=== PATIENT | female | born 2005 | race Caucasian/White ===

== ENCOUNTER 2024-09-26 10:38 | Emergency (ER) | payer OTHER ==
--- NOTE | 2024-09-26 12:19 | EDPHYS ---
Physician Documentation [facility] Name: Bradly Fortune Age: 19 yrs Sex: Female : 2005 Arrival Date: 09/26/2024 Time: 10:38 Bed IW1 Private MD: ED Physician Dave Singh HPI: 09/26 10:48 This 19 yrs old Female presents to ER via Unassigned with complaints of Allergic kb Reaction. 10:48 Pt is a 19 year old female who presents for allergic reaction. States she took kb Armodafinil for narcolepsy for the first time this morning. Afterwards she felt lethargic, shaky and tingling to throat. Denies shortness of breath. Reports abd pain. . 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 - Infectious Disease History:: Denies. - Social history:: Smoking status: Patient denies any tobacco usage or history of. Patient/guardian denies using alcohol. ROS: 10:48 Constitutional: As per HPI kb Exam: 12:18 Constitutional: This is a well developed, well nourished patient who is awake, alert, kb and in no acute distress. Head/Face: Normocephalic, atraumatic. ENT: Moist Mucous membranes Cardiovascular: Regular rate Respiratory: Respirations even and unlabored. No increased work of breathing. Talking in full sentences Skin: Warm, dry with normal turgor. Normal color. MS/ Extremity: Pulses equal, no cyanosis. Neurovascular intact. Full, normal range of motion. Neuro: Awake and alert, GCS 15, oriented to person, place, time, and situation. 12:18 Abdomen/GI: Inspection: abdomen appears normal, Bowel sounds: normal, Palpation: soft, kb in all quadrants, mild abdominal tenderness, in the left upper quadrant and left lower quadrant, Vital Signs: 10:52 BP 129 / 83; Pulse 64; Resp 17; Temp 98.2(O); Pulse Ox 100% on R/A; MAP 97 mmHg; Weight tm6 54.43 kg; Height 5 ft. 5 in. ; Pain 310; 10:52 Body Mass Index 19.97 (54.43 kg, 165.1 cm) tm6 10:52 Pain Scale: Adult tm6 MDM: 10:41 Medical Screening Exam initiated kb 12:18 Data reviewed: vital signs, nurses notes. kb 12:18 Differential diagnosis: anaphylaxis, urticaria, side effects of medication. Historians kb other than the Patient: Spouse/Significant Other: significant other. ED course: Pt elected to leave from [facility] prior to diagnostic testing and treatment. Administered Medications: 12:30 Not Given (pt left prior to med adminn): ns 0.9% 1000 ml IV at 1000 ml once; to be ss given as a bolus over 60 minutes 12:30 Not Given (pt left prior to med adminn): [id number] mg IVP once; dilute with 10 mL ss 0.9% NaCl; give over 2 minutes 12:31 Not Given (pt left prior to med adminn): [id number] mg IVP once ss Disposition Summary: 09/26/24 12:19 Discharge Ordered Notes: Location: Home kb Condition: Stable kb Diagnosis - Adverse reaction to medication kb Followup: kb - With: Emergency Department - When: As needed - Reason: Worsening of condition Followup: kb - With: Private Physician - When: 2 - 3 days - Reason: Recheck today's complaints, Continuance of care, Re-evaluation by your physician Forms: - Medication Reconciliation Form kb - Antibiotic Education kb - Prescription Opioid Use kb - Patient Portal Instructions kb - Leadership Thank You Letter kb Signatures: Dispatcher [employer] Angélica Banegas FNP-C FNP-Ckb Masterson, Tawney RN RN tm6 Honey Boyd RN ss Corrections: (The following items were deleted from the chart) 12:18 12:18 Constitutional: This is a well developed, well nourished patient who is awake, kb alert, and in no acute distress. Head/Face: Normocephalic, atraumatic. ENT: Moist Mucous membranes Cardiovascular: Regular rate Respiratory: Respirations even and unlabored. No increased work of breathing. Talking in full sentences Abdomen/GI: Soft, non-tender. No distention Skin: Warm, dry with normal turgor. Normal color. MS/ Extremity: Pulses equal, no cyanosis. Neurovascular intact. Full, normal range of motion. Neuro: Awake and alert, GCS 15, oriented to person, place, time, and situation. kb 12:31 10:54 IV Saline Lock ordered. kb ss
--- NOTE | 2024-09-26 12:19 | ER ---
Nurse's Notes [facility] Name: Bradly Fortune Age: 19 yrs Sex: Female : 2005 Arrival Date: 09/26/2024 Time: 10:38 Bed IW1 Private MD: Diagnosis: Adverse reaction to medication Presentation: 09/26 10:51 Chief complaint: Patient states: took med for narcolepsy this morning for the first tm6 time. Now feels lethargic, shaky, throat is tingly, stomach hurts. Denies SOB, rash, itching. Coronavirus screen: Client denies travel out of the [place] in the last 14 days. Ebola Screen: Patient negative for fever greater than or equal to 101.5 degrees Fahrenheit, and additional compatible Ebola Virus Disease symptoms Patient denies exposure to infectious person. Patient denies travel to an Ebola-affected area in the 21 days before illness onset. No symptoms or risks identified at this time. Onset: The symptoms/episode began/occurred this morning. Anaphylaxis evaluation, the patient reports or I have noted the following symptoms which indicate a significant risk of anaphylaxis: abdominal pain. Risk Assessment: Do you want to hurt yourself or someone else? Patient reports no desire to harm self or others. Onset of symptoms was September 26, 2024. 10:51 Method Of Arrival: Wheelchair tm6 10:51 Acuity: BHAVIK 3 tm6 Triage Assessment: 10:52 General: Appears in no apparent distress. Behavior is calm, cooperative. General: tm6 Reports feeling lethargic and shaky. Pain: Complains of pain in abdomen. EENT: No signs and/or symptoms were reported regarding the EENT system. EENT: Reports tingly throat. Neuro: Level of Consciousness is awake, alert, obeys commands, Oriented to person, place, time, situation. Cardiovascular: Patient's skin is warm and dry. Respiratory: Airway is patent Respiratory effort is even, unlabored, Respiratory pattern is regular, symmetrical. GI: Abdomen is flat, non-distended, Reports lower abdominal pain. : No signs and/or symptoms were reported regarding the genitourinary system. Derm: No signs and/or symptoms reported regarding the dermatologic system. Musculoskeletal: No signs and/or symptoms reported regarding the musculoskeletal system. 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 - Infectious Disease History:: Denies. - Social history:: Smoking status: Patient denies any tobacco usage or history of. Patient/guardian denies using alcohol. Assessment: 12:28 Reassessment: Called to triage, no answer. Unable to locate patient. Registration staff ss reports patient had left the ER lobby. 12:30 Reassessment: Pt left prior to being discharged by this nurse. ss Vital Signs: 10:52 BP 129 / 83; Pulse 64; Resp 17; Temp 98.2(O); Pulse Ox 100% on R/A; MAP 97 mmHg; Weight tm6 54.43 kg; Height 5 ft. 5 in. ; Pain 3/10; 10:52 Body Mass Index 19.97 (54.43 kg, 165.1 cm) tm6 10:52 Pain Scale: Adult tm6 ED Course: 10:41 Patient arrived in ED. mr 10:41 Angélica Pritchett F[facility]-C [facility] kb 10:41 Dave Singh MD is Attending Physician. kb 10:52 Triage completed. tm6 10:56 Arm band placed on left wrist. tm6 12:29 No provider procedures requiring assistance completed. Patient did not have IV access ss during this emergency room visit. Administered Medications: 12:30 Not Given (pt left prior to med adminn): ns 0.9% 1000 ml IV at 1000 ml once; to be ss given as a bolus over 60 minutes 12:30 Not Given (pt left prior to med adminn): [id number] mg IVP once; dilute with 10 mL ss 0.9% NaCl; give over 2 minutes 12:31 Not Given (pt left prior to med adminn): [id number] mg IVP once ss Outcome: 12:19 Discharge ordered by . kb 12:29 Discharged to home Pt left prior to receiving discharge instructions ss 12:31 Patient left the ED. ss Signatures: Angélica Pritchett FNP-C FNP-Niesha Salas, Reg Reg Honey Montes, RN RN ss Faviola Bustamante, RN RN tm6
[2024-09-26 12:39] VITALS: BP 129/83; TEMP 98.2; O2SAT 100
== END 2024-09-26 12:31 | disposition home or self-care (01) ==
LOC: ER 10:38
DX: T50.995A Adverse effect of other drugs, medicaments and biological substances, initial encounter (principal); G47.419 Narcolepsy without cataplexy
CPT/HCPCS: 99281

== ENCOUNTER 2025-01-01 23:58 | Emergency (ER) | payer OTHER ==
[2025-01-02] MEDS ORDERED: NA CHLORIDE 0.9% 500 ML ONE (00:18)
[2025-01-02] MEDS ORDERED: ACETAMINOPHEN 325 MG TABLET ONE (00:18)
[2025-01-02 00:55] LABS: Absolute Basophils 0.1 K/uL (0-0.5); Absolute Eosinophils 0.3 K/uL (0-0.5); Absolute Lymphocytes (CBC) 3.6 K/uL (0.7-4.9); Absolute Monocytes 0.8 K/uL (0.1-1.3); Absolute Neutrophil 3.5 K/uL (1.8-8.0); Basophils % 0.9 % (0-1.3); Eosinophils % 4.1 % (0-4.4); Hematocrit 36.8 % (36.0-45.0); Lymphocytes % 43.2 % (15.3-44.8); MCH 34.3 pg (27.0-35.0); MCHC 35.3 g/dL (32.0-36.0); MCV 97.2 fL (80-100); MPV 8.1 fL (7.6-11.3); Monocytes % 9.7 % (3.3-12.3); Neutrophils % 42.1 % (41.7-73.7); Nucleated Red Blood Cells % 0.1 % (0-0); Platelets 325 thou/uL (152-406); RBC Red Blood Cell Count 3.78 M/uL (3.86-4.86); Red Cell Distribution Width 12.4 % (12.1-15.2)
[2025-01-02 00:59] LABS: PT Prothrombin Time 11.6 SECONDS (10.0-13.0); PTT, Activated Partial Thromb 40.2 SECONDS (24.3-36.9); Protime INR 1.02
[2025-01-02 01:06] LABS: Specific Gravity 1.007 (1.005-1.030)
[2025-01-02 01:07] LABS: Specific Gravity 1.007 (1.005-1.030); Sqamous Epithelial <5 /HPF (None Seen); Urine Bacteria <20 /HPF (<20); Urine Bilirubin NEGATIVE (Negative); Urine Blood Negative (Negative); Urine Clarity Turbid (Clear); Urine Color Colorless (Yellow); Urine Culture Reflex Order NOT NEEDED; Urine Glucose NEGATIVE (Negative); Urine Ketones NEGATIVE (Negative); Urine Microscopic Reflex YN ORDER UMIC; Urine Nitrite NEGATIVE (Negative); Urine Protein NEGATIVE (Negative); Urine RBC <5 /HPF (None Seen); Urine Urobilinogen Normal (Normal); Urine WBC <5 /HPF (<5)
[2025-01-02 01:09] LABS: ALT/SGPT 21 U/L (13-56); Albumin/Globulin Ratio 1.2 (1.1-1.8); Alkaline Phosphatase 71 U/L (45-117); Anion Gap 11.4 mEq/L (5.0-15.0); BUN Blood Urea Nitrogen 7 mg/dL (7-18); Bicarbonate 25 mEq/L (21-32); Bilirubin Total 0.3 mg/dL (0.2-1.0); Globulin 3.4 g/dL (2.3-3.5); Glomerular Filtration Rate 109 ml/min (=/>90); Glucose Level 84 mg/dL (74-106); Magnesium 2.3 mg/dL (1.6-2.4); Potassium 3.4 mEq/L (3.5-5.1); Protein, Total 7.4 g/dL (6.4-8.2); Sodium Level 141 mEq/L (136-145); Troponin High Sensitivity 5.6 pg/mL (<58.9)
[2025-01-02 01:18] LABS: AST/SGOT < 10 U/L (15-37); Bilirubin Direct < 0.2 mg/dL (0-0.2); Bilirubin Indirect, Calculated 0.1 mg/dL (0.2-0.8)
[2025-01-02 01:22] LABS: Barbiturates NEGATIVE (NEGATIVE); Benzodiazepines NEGATIVE (NEGATIVE); Cocaine NEGATIVE (NEGATIVE); METHAMPHETAM NEGATIVE (NEGATIVE); Methadone NEGATIVE (NEGATIVE); Opiates NEGATIVE (NEGATIVE); Phencyclidine NEGATIVE (NEGATIVE); THC Cannibis NEGATIVE (NEGATIVE)
--- NOTE | 2025-01-02 02:10 | RAD REPORT ---
EXAM: XR Chest, 1 View CLINICAL HISTORY: The patient is 19 years old and is Female; possible syncope TECHNIQUE: Frontal view of the chest. COMPARISON: XR Chest dated August 05 2023 FINDINGS: LUNGS: Unremarkable. No consolidation. PLEURAL SPACE: Unremarkable. No pneumothorax. HEART: Unremarkable. No cardiomegaly. MEDIASTINUM: Unremarkable. Normal mediastinal contour. BONES/JOINTS: Unremarkable. No acute fracture. UPPER ABDOMEN: Unremarkable as visualized. IMPRESSION: No acute cardiopulmonary process. Electronically signed by: Rosio Guadalupe MD 01/02/2025 01:47 AM [facility] Due to temporary technical issues with the PACS/Pose reporting system, reports are being jeannette d by the in-house radiologist without review as a courtesy to ensure prompt reporting the interpreting radiologist is fully responsible for the content of the report. Transcribed Date/Time: 01/02/2025 2:09 AM
--- NOTE | 2025-01-02 04:05 | ER ---
Nurse's Notes [facility] Name: Bradly Fortune Age: 19 yrs Sex: Female : 2005 Arrival Date: 01/01/2025 Time: 23:58 Bed 15 Private MD: Diagnosis: Tremor, unspecified;Encounter for general adult medical examination without abnormal findings Presentation: 01/02 00:00 Chief complaint: EMS states: pt boyfriend call us because of possible allergic rg5 reaction, when we arrive at the scene the patient is having tremors, A \T\ O x 4. 00:00 Coronavirus screen: Client denies travel out of the [place] in the last 14 days. Ebola rg5 Screen: Patient negative for fever greater than or equal to 101.5 degrees Fahrenheit, and additional compatible Ebola Virus Disease symptoms. Initial Sepsis Screen: Does the patient meet any 2 criteria? No. Patient's initial sepsis screen is negative. Does the patient have a suspected source of infection? No. Patient's initial sepsis screen is negative. Risk Assessment: Do you want to hurt yourself or someone else? Patient reports no desire to harm self or others. Onset of symptoms was January 02, 2025. Care prior to arrival: Medication(s) given: Normal saline infusion, 200 IV initiated. 20 GA, in the right antecubital area, Oxygen administered. via nasal cannula. 00:00 Method Of Arrival: EMS: [facility] rg5 00:00 Acuity: BHAVIK 3 rg5 Triage Assessment: 00:00 General: Appears in no apparent distress. comfortable, Behavior is calm, cooperative, rg5 appropriate for age. Pain: Complains of pain in head Pain currently is 5 out of 10 on a pain scale. Quality of pain is described as aching, Pain began 30 min ago. EENT: No deficits noted. Neuro: Level of Consciousness is awake, alert, obeys commands, Oriented to person, place, time, situation. Cardiovascular: Denies chest pain, Patient's skin is warm and dry. Respiratory: Airway is patent Trachea midline Respiratory effort is even, unlabored, Respiratory pattern is regular, symmetrical. GI: Abdomen is flat, non-distended, Abd is soft and non tender. : No signs and/or symptoms were reported regarding the genitourinary system. Derm: Skin is intact, Skin is dry, Skin is normal, Skin temperature is warm. Musculoskeletal: Circulation, motion, and sensation intact. Range of motion: intact in all extremities. 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 - Infectious Disease History:: Denies. - Social history:: Smoking status: Patient denies any tobacco usage or history of. - Family history:: not pertinent. - Hospitalizations: : No recent hospitalization is reported. Screenin:00 [facility] ED Fall Risk Assessment (Adult) History of falling in the last 3 months, rg5 including since admission Yes- single mechanical fall (1 pt) Confusion or Disorientation Yes (5 pts) Intoxicated or Sedated No (0 pts) Impaired Gait No (0 pts) Mobility Assist Device Used No (0 pt) Altered Elimination No (0 pt) Score/Fall Risk Level 0 - 2 = Low Risk Oriented to surroundings, Maintained a safe environment, Provided non-skid footwear, Hourly rounding (assess needs \T\ fall precautionary measures) done. Abuse screen: Denies threats or abuse. Nutritional screening: No deficits noted. Tuberculosis screening: No symptoms or risk factors identified. Assessment: 00:00 Reassessment: see triage assessment. rg5 01:15 Reassessment: Patient and/or family updated on plan of care and expected duration. Pain rg5 level reassessed. Patient is alert, oriented x 3, equal unlabored respirations, skin warm/dry/pink. Patient states feeling better. 02:13 Reassessment: No changes from previously documented assessment. Patient and/or family rg5 updated on plan of care and expected duration. Pain level reassessed. Patient is alert, oriented x 3, equal unlabored respirations, skin warm/dry/pink. 03:30 Reassessment: Patient and/or family updated on plan of care and expected duration. Pain rg5 level reassessed. Patient is alert, oriented x 3, equal unlabored respirations, skin warm/dry/pink. Patient states symptoms have improved. Vital Signs: 00:00 BP 113 / 71; Pulse 85; Resp 18; Temp 98.7(O); Pulse Ox 100% on R/A; Weight 56.7 kg; rg5 Height 5 ft. 4 in. ; Pain 5/10; 01:15 BP 112 / 73; Pulse 88; Resp 17; Pulse Ox 97% on R/A; Pain 0/10; rg5 02:20 BP 114 / 78; Pulse 79; Resp 17; Pulse Ox 100% on R/A; Pain 0/10; rg5 03:30 BP 113 / 75; Pulse 83; Resp 17; Pulse Ox 100% on R/A; Pain 0/10; rg5 00:00 Body Mass Index 21.46 (56.70 kg, 162.56 cm) rg5 00:00 Pain Scale: Adult rg5 01:15 Pain Scale: Adult rg5 02:20 Pain Scale: Adult rg5 03:30 Pain Scale: Adult rg5 ED Course: 00:00 Patient arrived in ED. rn 00:00 Chirag Comer MD is Attending Physician. rn 00:00 Arm band placed on right wrist. EKG completed in triage. Results shown to MD. rg5 00:00 Patient has correct armband on for positive identification. Bed in low position. Call rg5 light in reach. Side rails up X 1. Door closed. Noise minimized. Warm blanket given. 00:00 No provider procedures requiring assistance completed. Maintain EMS IV. Dressing rg5 intact. Good blood return noted. Site clean \T\ dry. Gauge \T\ site: 20 gauge right AC. Flushed with 10 mL NS IV is patent, is intact, with good blood return. Patient maintains SpO2 saturation greater than 95% on room air. 00:05 Jose Weldon, BELINDA is Primary Nurse. rg5 00:26 X-ray completed. Portable x-ray completed in exam room. Patient tolerated procedure mh1 well. 00:30 Triage completed. rg5 00:40 Chest Single View XRAY In Process Unspecified. EDMS 01:48 CT Head Brain wo Cont In Process Unspecified. EDMS 01:48 CT Head Angio In Process Unspecified. EDMS 01:[address] In Process Unspecified. EDMS 02:13 Awaiting radiology results. Awaiting CT Scan. rg5 04:17 Provided Education on: POST ER CARE. rg5 04:17 Patient transferred, IV remains in place. bleeding controlled, No redness/swelling at rg5 site. Pressure dressing applied. Administered Medications: 00:15 Drug: NS 0.9% IV 500 ml 500 ml IV at 1 bolus once; to be given as a bolus over 30 rg5 minutes Volume: 500 ml; Route: IV; Rate: 1 bolus; Site: right antecubital; 01:10 Follow up: IV Status: Completed infusion; IV Intake: 500ml rg5 Medication: 00:00 VIS not applicable for this client. rg5 Intake: 01:10 IV: 500ml; Total: 500ml. rg5 Outcome: 04:05 Discharge ordered by . rn 04:17 Discharged to home ambulatory, rg5 04:17 Condition: stable 04:17 Instructed on discharge instructions, follow up and referral plans. 04:18 Patient left the ED. rg5 Signatures: Dispatcher [employer] Ilana Benedict [facility] Chirag Comer MD MD rn Gallardo, Rommel, RN RN rg5
--- NOTE | 2025-01-02 04:05 | EDPHYS ---
Physician Documentation [facility] Name: Bradly Fortune Age: 19 yrs Sex: Female : 2005 Arrival Date: 01/01/2025 Time: 23:58 Bed 15 Private MD: ED Physician Chirag Comer HPI: 01/02 01:38 This 19 yrs old Female presents to ER via EMS with complaints of shaking. rn 01:38 EMS reports called out initially for possible allergic reaction, found patient shaking rn and very anxious, was having "tremors", but was answering their questions and following commands. EMS reports did not appear to be a seizure. 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 They have not recommended any surgical intervention. States has had syncopal episodes before due to this. Denies any fever or chills. No drug use. No . No chest pain or shortness of breath. No palpitations. No new medication.. Onset: The symptoms/episode began/occurred just prior to arrival. Severity of symptoms: At their worst the symptoms were mild in the emergency department the symptoms have improved. The patient has not experienced similar symptoms in the past. The patient has not recently seen a physician. 01:38 Nothing given by EMS and patient feeling better, near back to baseline.. 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 - Infectious Disease History:: Denies. - Social history:: Smoking status: Patient denies any tobacco usage or history of. - Family history:: not pertinent. - Hospitalizations: : No recent hospitalization is reported. ROS: 01:38 Constitutional: Negative for fever, chills, and weight loss, Eyes: Negative for injury, rn pain, redness, and discharge, ENT: Negative for injury, pain, and discharge, Cardiovascular: Negative for chest pain, palpitations, and edema, Respiratory: Negative for shortness of breath, cough, wheezing, and pleuritic chest pain, Abdomen/GI: Negative for abdominal pain, nausea, vomiting, diarrhea, and constipation, Back: Negative for injury and pain, MS/Extremity: Negative for injury and deformity, Skin: Negative for injury, rash, and discoloration, Neuro: Negative for headache, weakness, numbness, tingling, and seizure, Exam: 01:38 Constitutional: This is a well developed, well nourished patient who is awake, alert, rn and in no acute distress. Head/Face: Normocephalic, atraumatic. ENT: Dry mucous membranes Neck: No meningismus Cardiovascular: Regular rate and rhythm. No pulse deficits. Respiratory: Speaking full sentences, unlabored. No increased work of breathing, no retractions or nasal flaring. Abdomen/GI: Soft, non-tender Skin: Warm, dry with normal turgor. MS/ Extremity: Pulses equal, no cyanosis. Neurovascular intact. Full, normal range of motion. Equal circumference. Neuro: Awake and alert, GCS 15, oriented to person, place, time, and situation. Cranial nerves II-XII grossly intact. Motor strength 5/5 in all extremities. Sensory grossly intact. Cerebellar exam normal. 01:44 ECG was reviewed by the Attending Physician. rn Vital Signs: 00:00 BP 113 / 71; Pulse 85; Resp 18; Temp 98.7(O); Pulse Ox 100% on R/A; Weight 56.7 kg; rg5 Height 5 ft. 4 in. ; Pain 5/10; 01:15 BP 112 / 73; Pulse 88; Resp 17; Pulse Ox 97% on R/A; Pain 0/10; rg5 02:20 BP 114 / 78; Pulse 79; Resp 17; Pulse Ox 100% on R/A; Pain 0/10; rg5 03:30 BP 113 / 75; Pulse 83; Resp 17; Pulse Ox 100% on R/A; Pain 0/10; rg5 00:00 Body Mass Index 21.46 (56.70 kg, 162.56 cm) rg5 00:00 Pain Scale: Adult rg5 01:15 Pain Scale: Adult rg5 02:20 Pain Scale: Adult rg5 03:30 Pain Scale: Adult rg5 MDM: 00:00 Medical Screening Exam initiated rn 04:03 Differential Diagnosis Seizure, syncope, anxiety. Data reviewed: vital signs, nurses rn notes, lab test result(s), EKG, radiologic studies, CT scan, and as a result, I will discharge patient. Counseling: I had a detailed discussion with the patient and/or guardian regarding the historical points, exam findings, and any diagnostic results supporting the discharge/admit diagnosis, lab results, radiology results, the need for outpatient follow up, to return to the emergency department if symptoms worsen or persist or if there are any questions or concerns that arise at home. Response to treatment: the patient's symptoms have resolved after treatment, the patient's condition has returned to base line, the patient is now symptom free, and as a result, I will discharge patient. Special discussion: I discussed with the patient/guardian in detail that at this point there is no indication for admission to the hospital. It is understood, however, that if the symptoms persist or worsen the patient needs to return immediately for re-evaluation. Based on the history and exam findings, there is no indication for further emergent testing or inpatient evaluation. I discussed with the patient/guardian the need to see the primary care provider for further evaluation of the symptoms. ED course: No acute findings to explain exactly what happened to the patient. But given only IV fluids with return to baseline. Spoke to them about possible syncope versus seizure. Will follow-up with PCP and given return precautions and understood.. 01/02 00:01 Order name: Basic Metabolic Panel; Complete Time: rn 01/02 00:01 Order name: CBC with Diff; Complete Time: rn 01/02 00:01 Order name: Hepatic Function; Complete Time: 01/02 00:01 Order name: Magnesium; Complete Time: 01/02 00:01 Order name: Test, Urine; Complete Time: 01/02 00:01 Order name: Protime (+inr); Complete Time: 01/02 00:01 Order name: Ptt, Activated; Complete Time: 01/02 00:01 Order name: Troponin High Sensitivity; Complete Time: 01/02 00:01 Order name: UDS; Complete Time: 01/02 00:01 Order name: Urinalysis w/ reflexes; Complete Time: rn 01/02 00:01 Order name: CT Head Brain wo Cont rn 01/02 00:01 Order name: Chest Single View XRAY rn 01/02 00:01 Order name: CT Head Angio rn 01/02 00:01 Order name: Neck Angio CT rn 01/02 00:01 Order name: EKG; Complete Time: 00: rn 01/02 00:01 Order name: Cardiac monitoring; Complete Time: :39 rn 01/02 00:01 Order name: EKG - Nurse/Tech; Complete Time: 00:39 rn 01/02 00:01 Order name: IV Saline Lock; Complete Time: : rn 01/02 00:01 Order name: Labs collected and sent; Complete Time: 00: rn 01/02 00:01 Order name: NPO; Complete Time: : rn 01/02 00:01 Order name: O2 Per Protocol; Complete Time: : rn 01/02 00:01 Order name: O2 Sat Monitoring; Complete Time: : rn EC:44 Rate is 82 beats/min. Rhythm is regular. QRS [place] is Normal. [place] interval is normal. QRS rn interval is normal. QT interval is normal. No Q waves. T waves are Normal. Clinical impression: Normal ECG. Interpreted by me. Reviewed by me. Administered Medications: 00:15 Drug: NS 0.9% IV 500 ml 500 ml IV at 1 bolus once; to be given as a bolus over 30 rg5 minutes Volume: 500 ml; Route: IV; Rate: 1 bolus; Site: right antecubital; 01:10 Follow up: IV Status: Completed infusion; IV Intake: 500ml rg5 Disposition Summary: 01/02/25 04:05 Discharge Ordered Notes: Location: Home rn Problem: new rn Symptoms: are resolved rn Condition: Stable rn Diagnosis - Tremor, unspecified rn - Encounter for general adult medical examination without abnormal findings rn Followup: rn - With: Private Physician - When: As needed - Reason: Recheck today's complaints, Re-evaluation by your physician Discharge Instructions: - Discharge Summary Sheet rn - Near-Syncope rn - Tremor rn Forms: - Medication Reconciliation Form rn - Antibiotic rn care transition - Prescription Opioid Use rn - Patient Portal Instructions rn - Leadership Thank You Letter rn Signatures: Dispatcher [employer] Chirag Jimenes MD MD rn Gallardo, Rommel, RN RN rg5
--- NOTE | 2025-01-02 04:13 | RAD REPORT ---
EXAM: CT Angiography Head With Intravenous Contrast CLINICAL HISTORY: The patient is 19 years old and is Female; possible syncope TECHNIQUE: Axial computed tomographic angiography images of the head with intravenous contrast. S agittal and coronal reformatted images were created and reviewed. This CT exam was performed using one or more of the following dose reduction techniques: automated exposure control, adjustmen t of the mA and/or kV according to patient size, and/or use of iterative reconstruction technique. MIP reconstructed images were created and reviewed. COMPARISON: No relevant prior studies available. FINDINGS: Right internal carotid artery: No acute findings. Intracranial segment is patent with no signif icant stenosis. No aneurysm. Right anterior cerebral artery: Unremarkable. No occlusion or significant stenosis. No aneury sm. Right middle cerebral artery: Unremarkable. No occlusion or significant stenosis. No aneurysm . Right posterior cerebral artery: Unremarkable. No occlusion or significant stenosis. No aneur ysm. Right vertebral artery: Unremarkable as visualized. Left internal carotid artery: No acute findings. Intracranial segment is patent with no signifi cant stenosis. No aneurysm. Left anterior cerebral artery: Unremarkable. No occlusion or significant stenosis. No aneurys m. Left middle cerebral artery: Unremarkable. No occlusion or significant stenosis. No aneurysm. Left posterior cerebral artery: Unremarkable. No occlusion or significant stenosis. No aneury sm. Left vertebral artery: Unremarkable as visualized. Basilar artery: Unremarkable. No occlusion or significant stenosis. No aneurysm. * A single impression for all exams can be found at the end of this report EXAM: CT Angiography Neck With Intravenous Contrast CLINICAL HISTORY: The patient is 19 years old and is Female; possible syncope TECHNIQUE: Routine carotid CT angiography protocol was performed with intravenous contrast. NASCE T criteria using the distal ICAs for comparison were used for evaluation of stenoses. Sagittal and coronal reformatted images were created and reviewed. This CT exam was performed using one or m ore of the following dose reduction techniques: automated exposure control, adjustment of the mA and/or kV according to patient size, and/or use of iterative reconstruction technique. MIP reconstr ucted images were created and reviewed. COMPARISON: None. FINDINGS: VASCULATURE: Right common carotid artery: Unremarkable. No occlusion or significant stenosis. No dissectio n. Right internal carotid artery: Unremarkable. Extracranial segment is patent with no occlusion o r significant stenosis. No dissection. Right external carotid artery: Unremarkable. No occlusion. Right vertebral artery: Unremarkable. No occlusion or significant stenosis. No dissection. Left common carotid artery: Unremarkable. No occlusion or significant stenosis. No dissection . Left internal carotid artery: Unremarkable. Extracranial segment is patent with no occlusion or significant stenosis. No dissection. Left external carotid artery: Unremarkable. No occlusion. Left vertebral artery: Unremarkable. No occlusion or significant stenosis. No dissection. NECK: Bones/joints: Unremarkable. No acute fracture. Soft tissues: Unremarkable. Lung apices: Clear. CAROTID STENOSIS REFERENCE USING NASCET CRITERIA: % ICA stenosis = (1 - narrowest ICA diameter/diameter of distal cervical ICA) x 100. Mild - <50% stenosis. Moderate - 50-69% stenosis. Severe - 70-94% stenosis. Near occlusion - 95-99% stenosis. Occluded - 100% stenosis. * A single impression for all exams can be found at the end of this report EXAM: CT Head Without Intravenous Contrast CLINICAL HISTORY: The patient is 19 years old and is Female; possible syncope TECHNIQUE: Axial computed tomography images of the head/brain without intravenous contrast. Sagit julisa and coronal reformatted images were created and reviewed. This CT exam was performed using one or more of the following dose reduction techniques: automated exposure control, adjustment of t he mA and/or kV according to patient size, and/or use of iterative reconstruction technique. COMPARISON: No relevant prior studies available. FINDINGS: Brain: Unremarkable. No hemorrhage. No significant white matter disease. No edema. Ventricles: Unremarkable. No ventriculomegaly. Bones/joints: Unremarkable. No acute fracture. Soft tissues: Unremarkable. Sinuses: Unremarkable as visualized. Mastoid air cells: Unremarkable as visualized. No mastoid effusion. * A single impression for all exams can be found at the end of this report IMPRESSION: CT Angiography Head With Intravenous Contrast: No occlusion or significant stenosis. No aneurysm. CT Angiography Neck With Intravenous Contrast: No significant stenosis. No dissection or occlusion. CT Head Without Intravenous Contrast: No acute intracranial abnormality. Electronically signed by: Garry Garcia MD 01/02/2025 03:53 AM [facility] 8 Due to temporary technical issues with the PACS/CNZZ reporting system, reports are being jeannette d by the in-house radiologist without review as a courtesy to ensure prompt reporting the interpreting radiologist is fully responsible for the content of the report. Transcribed Date/Time: 01/02/2025 4:13 AM
[2025-01-02 04:28] VITALS: TEMP 98.7
[2025-01-02 04:30] VITALS: O2SAT 100
[2025-01-02 04:31] VITALS: BP 113/75
--- NOTE | 2025-01-05 11:12 | EKG ---
Test Date: 2025-01-02 Test Time: 00:35:36 [employer]: SINDI MEASUREMENT RESULTS: Intervals: Rate: 82 ID: [id number] QRSD: 112 QT: 372 QTc: 434 [place]: P: -6 ID: [id number] QRS: -7 T: 2 INTERPRETIVE STATEMENTS: Normal sinus rhythm with sinus arrhythmia Normal ECG No previous ECG available for comparison Electronically Signed On 01-05-25 11:03:22 CDT by Timothy Viramontes
== END 2025-01-02 04:18 | disposition home or self-care (01) ==
LOC: ER 23:58
DX: R25.1 Tremor, unspecified (principal)
CPT/HCPCS: 93005; 85025; 81001; 80048; 36415; 83735; 81025; 85610; 80076; 85730; 84484; 80307; 70450; 70496; 70498; 71045; 96360; 99284; Q9967; J7040

== ENCOUNTER 2025-01-14 21:00 | Emergency (ER) | payer OTHER ==
[2025-01-14] MEDS ORDERED: NA CHLORIDE 0.9% 1,000 ML ONE (22:11)
[2025-01-14] MEDS ORDERED: LEVETIRACETAM 500 MG/5 ML VIAL IV ONE (22:11)
[2025-01-14] MEDS ORDERED: NA CHLORIDE 0.9% 100 ML ONE (22:11)
[2025-01-14 22:13] LABS: PT Prothrombin Time 12.1 SECONDS (10-13.0); Protime INR 1.06
[2025-01-14 22:14] LABS: PTT, Activated Partial Thromb 38.7 SECONDS (27.2-37.4)
[2025-01-14 22:17] LABS: Absolute Eosinophils 0.3 K/uL (0-0.5); Absolute Lymphocytes (CBC) 3.2 K/uL (0.7-4.9); Absolute Monocytes 0.5 K/uL (0.1-1.3); Absolute Neutrophil 3.2 K/uL (1.8-8.0); Basophils % 0.6 % (0-1.3); Eosinophils % 4.1 % (0-4.4); Hematocrit 34.5 % (36.0-45.0); Hemoglobin 12.5 g/dL (12.0-15.0); Lymphocytes % 43.7 % (15.3-44.8); MCH 35.1 pg (27.0-35.0); MCHC 36.3 g/dL (32.0-36.0); MPV 8.2 fL (7.6-11.3); Neutrophils % 44.6 % (41.7-73.7); Platelets 278 thou/uL (152-406); RBC Red Blood Cell Count 3.55 M/uL (3.86-4.86); Red Cell Distribution Width 12.1 % (12.1-15.2)
[2025-01-14 22:26] LABS: ALT/SGPT 22 U/L (13-56); AST/SGOT 12 U/L (15-37); Albumin 3.8 g/dL (3.4-5.0); Albumin/Globulin Ratio 1.2 (1.1-1.8); Alkaline Phosphatase 66 U/L (45-117); Anion Gap 5.7 mEq/L (5.0-15.0); BUN Blood Urea Nitrogen 11 mg/dL (7-18); Bicarbonate 28 mEq/L (21-32); Bilirubin Direct < 0.2 mg/dL (0-0.2); Bilirubin Indirect, Calculated 0.1 mg/dL (0.2-0.8); Bilirubin Total 0.3 mg/dL (0.2-1.0); Globulin 3.3 g/dL (2.3-3.5); Glomerular Filtration Rate 74 ml/min (=/>90); Glucose Level 88 mg/dL (74-106); Potassium 3.7 mEq/L (3.5-5.1); Protein, Total 7.1 g/dL (6.4-8.2); Sodium Level 139 mEq/L (136-145)
[2025-01-14] MEDS ORDERED: LORazepam 2 MG/ML VIAL ONE (22:39)
[2025-01-14] MEDS ORDERED: ONDANSETRON 4 MG/2 ML VIAL ONE (22:39)
--- NOTE | 2025-01-15 00:17 | ER ---
Nurse's Notes [facility] Name: Bradly Fortune Age: 19 yrs Sex: Female : 2005 Arrival Date: 01/14/2025 Time: 21:00 Bed 2 Private MD: Diagnosis: Other seizures;Epileptic seizures intractable, recurrent Presentation: 01/14 21:06 Chief complaint: Patient states: Pt had a seizure at home. Was suppose to see a jb4 specialist for it. Had 4 seizures with EMS , gave 2mg of Ativan IVP. Coronavirus screen: At this time, the client does not indicate any symptoms associated with coronavirus-19. Ebola Screen: No symptoms or risks identified at this time. Initial Sepsis Screen: Does the patient meet any 2 criteria? No. Patient's initial sepsis screen is negative. Does the patient have a suspected source of infection? No. Patient's initial sepsis screen is negative. Risk Assessment: Do you want to hurt yourself or someone else? Patient reports no desire to harm self or others. Onset of symptoms was January 14, 2025. Transition of care: patient was not received from another setting of care. 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 - Infectious Disease History:: Denies. - Social history:: Smoking status: Patient denies any tobacco usage or history of. - Family history:: not pertinent. Screenin:16 [facility] ED Fall Risk Assessment (Adult) History of falling in the last 3 months, jb4 including since admission No falls in past 3 months (0 pts) Confusion or Disorientation No (0 pts) Intoxicated or Sedated No (0 pts) Impaired Gait No (0 pts) Mobility Assist Device Used Yes (1 pt) Altered Elimination No (0 pt) Score/Fall Risk Level 0 - 2 = Low Risk Oriented to surroundings, Maintained a safe environment. Abuse screen: Denies threats or abuse. Nutritional screening: No deficits noted. Tuberculosis screening: No symptoms or risk factors identified. Assessment: 21:16 General: Appears in no apparent distress. comfortable, Behavior is calm, cooperative, jb4 appropriate for age. Pain: Denies pain. Neuro: Level of Consciousness is awake, alert, obeys commands, Oriented to person, place, time, situation. Cardiovascular: Patient's skin is warm and dry. Respiratory: Airway is patent Respiratory effort is even, unlabored, Respiratory pattern is regular, symmetrical. Derm: Skin is intact, Skin is pink, warm \T\ dry. Musculoskeletal: Circulation, motion, and sensation intact. Range of motion: intact in all extremities. 22:00 Reassessment: Patient appears in no apparent distress at this time. Patient and/or jb4 family updated on plan of care and expected duration. Pain level reassessed. Patient is alert, oriented x 3, equal unlabored respirations, skin warm/dry/pink. 23:39 Reassessment: Patient appears in no apparent distress at this time. Patient and/or jb4 family updated on plan of care and expected duration. Pain level reassessed. Pt resting in bed with no s/s of seizure like activity. Family is at the bedside. No s/s of pain or distress noted. Vital Signs: 21:06 BP 120 / 74; Pulse 85; Resp 16; Temp 97.6(O); Pulse Ox 99% on R/A; Weight 56.7 kg; jb4 Height 5 ft. 5 in. (R); 23:39 BP 105 / 72; Pulse 53; Resp 16; Pulse Ox 100% on R/A; jb4 01/15 01:40 BP 101 / 64; Pulse 60; Resp 18 S; Pulse Ox 98% on R/A; br2 01/14 21:06 Body Mass Index 20.80 (56.70 kg, 165.1 cm) jb4 Denis Coma Score: 00:16 Eye Response: spontaneous(4). Motor Response: obeys commands(6). Verbal Response: sp4 oriented(5). Total: 15. ED Course: 01/14 21:06 Patient arrived in ED. rv1 21:06 Bhupinder Cameron, RN is Primary Nurse. jb4 21:14 Triage completed. jb4 21:15 Arm band placed on right wrist. jb4 21:16 Patient has correct armband on for positive identification. Bed in low position. Call jb4 light in reach. Side rails up X 1. Provided Education on: plan of care. 21:22 Zachery Rodriguez MD is Attending Physician. sp4 22:04 Salicylate Sent. jb4 22:04 Ptt, Activated Sent. jb4 22:04 PT-INR Sent. jb4 22:04 Hepatic Function Sent. jb4 22:04 ETOH Level Sent. jb4 22:04 CBC with Diff Sent. jb4 22:04 Basic Metabolic Panel Sent. jb4 22:04 Acetaminophen Sent. jb4 22:38 Initiated transfer with [facility]. rv1 22:53 [facility] declined due to capacity. rv1 23:03 Initiated transfer with Chen at [facility]. rv1 23:34 CT Head Brain wo Cont In Process Unspecified. EDMS 23:43 Doc to Doc with Neuro at [facility]. rv1 01/15 00:48 Doc to Doc with Hospitalist at [facility]. rv1 01:[address] Reddy to [facility] Rm [id number]. Report # [id number]. rv1 01:15 IV is patent, is intact, Flushed left hand with 5 ml normal saline. br2 01:45 No provider procedures requiring assistance completed. Patient transferred, IV remains br2 in place. Administered Medications: 01/14 22:19 Drug: NS 0.9% IV 1000 ml IV at 1000 ml once; to be given as a bolus over 60 minutes jb4 Route: IV; Rate: 1000 ml; Site: left forearm; 01/15 00:00 Follow up: Response: No adverse reaction; IV Status: Completed infusion; IV Intake: br2 1000ml 01/14 22:20 Drug: Keppra IV 1000 mg IV at calculated rate once Route: IV; Rate: calculated rate; jb4 Site: left forearm; 01/15 00:00 Follow up: Response: No adverse reaction; IV Status: Completed infusion; IV Intake: br2 100ml 01/14 22:41 Drug: Ondansetron IVP 4 mg IVP once; over 2 minutes Route: IVP; Site: left forearm; [facility] 01/15 00:00 Follow up: Response: No adverse reaction br2 01/14 22:43 Drug: Ativan IVP 2 mg IVP once Route: IVP; Site: left forearm; ha1 01/15 00:00 Follow up: Response: No adverse reaction br2 00:54 Drug: Keppra IV 1500 mg IV at calculated rate once Route: IV; Rate: calculated rate; br2 Site: left wrist; 01:40 Follow up: Response: No adverse reaction; IV Status: Completed infusion; IV Intake: br2 100ml Medication: 01/14 21:16 VIS not applicable for this client. jb4 Intake: 01/15 00:00 IV: 1000ml; Total: 1000ml. br2 00:00 IV: 100ml; Total: 1100ml. br2 01:40 IV: 100ml; Total: 1200ml. br2 Outcome: 00:16 ER care complete, transfer ordered by . sp4 01:45 Transferred by [facility]. to [facility], Transfer form br2 completed. X-rays sent w/ patient. 01:45 Condition: improved 01:45 Instructed on the need for transfer, 01:57 Patient left the ED. 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 5 jb4 in. Reported; BMI: 20.8; jb4 22:53 22:52 Initiated transfer with [facility] rv1 rv1
--- NOTE | 2025-01-15 00:17 | EDPHYS ---
Physician Documentation [facility] Name: Bradly Fortune Age: 19 yrs Sex: Female : 2005 Arrival Date: 01/14/2025 Time: 21:00 Bed 2 Private MD: ED Physician Zachery Rodriguez HPI: 01/14 21:22 This 19 yrs old Female presents to ER via EMS with complaints of seizure . 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 Patient also had another MRI 2 days ago with MRA that has confirmed the same thing. Patient was here on 01/02/[address] angiography head and neck that was basically normal. Patient today developed worsening convulsive seizures described as generalized tonic-clonic seizures at home total of 4 lasting 15 to 30 seconds each. On EMS patient had another seizure and was given Ativan 2 mg IV. . 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 - Infectious Disease History:: Denies. - Social history:: Smoking status: Patient denies any tobacco usage or history of. - Family history:: not pertinent. ROS: 01/15 00:16 Constitutional: Negative for fever, chills, and weight loss, positive for recurrent sp4 seizures All other systems are negative, Exam: 00:16 Constitutional: This is a well developed, well nourished patient who is awake, alert, sp4 and in no acute distress. Head/Face: Normocephalic, atraumatic. Eyes: Pupils equal round and reactive to light, extra-ocular motions intact. Lids and lashes normal. Conjunctiva and sclera are not injected. Cornea within normal limits. Periorbital areas with no swelling, redness, or edema. ENT: Nares patent. No nasal discharge, no septal abnormalities noted. Tympanic membranes are normal and external auditory canals are clear. Oropharynx with no redness, swelling, or masses, exudates, or evidence of obstruction, uvula midline. Mucous membranes moist. Neck: Trachea midline, no thyromegaly or masses palpated, and no cervical lymphadenopathy. Supple, full range of motion without nuchal rigidity, or vertebral point tenderness. Chest/axilla: Normal chest wall appearance and motion. Nontender with no deformity. No lesions are appreciated. Cardiovascular: Regular rate and rhythm with a normal S1 and S2. No gallops, murmurs, or rubs. Normal PMI, no JVD. No pulse deficits. Respiratory: Lungs have equal breath sounds bilaterally, clear to auscultation and percussion. No rales, rhonchi or wheezes noted. No increased work of breathing, no retractions or nasal flaring. Abdomen/GI: Soft, with normal bowel sounds. No distension or tympany. No guarding or rebound. No evidence of tenderness throughout. Back: No spinal tenderness. No costovertebral tenderness. Skin: Warm, dry with normal turgor. Normal color with no rashes, no lesions, and no evidence of cellulitis. MS/ Extremity: Pulses equal, no cyanosis. Neurovascular intact. Full, normal range of motion. Neuro: Awake and alert, GCS 15, oriented to person, place, time, and situation. Cranial nerves II-XII grossly intact. Motor strength 5/5 in all extremities. Sensory grossly intact. Psych: Awake, alert, with orientation to person, place and time. Behavior, mood, and affect are within normal limits 00:16 ECG was reviewed by the Attending Physician. Vital Signs: 01/14 21:06 BP 120 / 74; Pulse 85; Resp 16; Temp 97.6(O); Pulse Ox 99% on R/A; Weight 56.7 kg; jb4 Height 5 ft. 5 in. (R); 23:39 BP 105 / 72; Pulse 53; Resp 16; Pulse Ox 100% on R/A; jb4 01/15 01:40 BP 101 / 64; Pulse 60; Resp 18 S; Pulse Ox 98% on R/A; br2 01/14 21:06 Body Mass Index 20.80 (56.70 kg, 165.1 cm) jb4 [place] Coma Score: 00:16 Eye Response: spontaneous(4). Motor Response: obeys commands(6). Verbal Response: sp4 oriented(5). Total: 15. MDM: 01/14 22:10 Medical Screening Exam initiated sp4 01/15 00:12 ED course: CT from 01/02/2025 - IMPRESSION: CT Angiography Head With Intravenous sp4 Contrast: No occlusion or significant stenosis. No aneurysm. RADIOLOGY SERVICES REPORT CT Angiography Neck With Intravenous Contrast: No significant stenosis. No dissection or occlusion. CT Head Without Intravenous Contrast: No acute intracranial abnormality. Electronically signed by: Garry Garcia MD 01/02/2025 03:53 AM. 00:20 Differential diagnosis: drug overdose, cardiac arrhythmia, seizure, TIA. Data reviewed: sp4 vital signs, nurses notes, EMS record, old medical records, lab test result(s), EKG, radiologic studies, CT scan. Consideration of Admission/Observation Escalation of care including admission/observation considered. ED course: Patient was given total of 2.5 g Keppra IV patient discussed with neurologist at [facility] and neurologist has determined that the patient requires transfer for evaluation and continuous EEG. Patient will be transferred with EMS. 00:54 ED course: Patient accepted at [facility] to telemetry floor. 4 01/14 21:24 Order name: Acetaminophen; Complete Time: 22:35 [facility] 01/14 21:24 Order name: Basic Metabolic Panel; Complete Time: 22:35 4 01/14 21:24 Order name: CBC with Diff; Complete Time: 22:35 4 01/14 21:24 Order name: ETOH Level; Complete Time: 22:35 [facility] 01/14 21:24 Order name: Hepatic Function; Complete Time: 22:35 4 01/14 21:24 Order name: PT-INR; Complete Time: 22:35 4 01/14 21:24 Order name: Test, Urine; Complete Time: 00:45 4 01/14 21:24 Order name: Ptt, Activated; Complete Time: 22:35 4 01/14 21:24 Order name: Salicylate; Complete Time: 00:03 4 01/14 21:24 Order name: Urinalysis w/ reflexes; Complete Time: 00:45 4 01/14 21:24 Order name: Urine Drug Screen [facility] 01/14 22:36 Order name: CK; Complete Time: 00:06 4 01/14 23:11 Order name: CT Head Brain wo Cont sp4 01/14 21:24 Order name: EKG; Complete Time: 21:24 sp4 01/14 21:24 Order name: EKG - Nurse/Tech; Complete Time: 23:36 sp4 01/14 21:24 Order name: IV Saline Lock; Complete Time: 22:04 sp4 01/14 21:24 Order name: Labs collected and sent; Complete Time: 22:04 sp4 EC/20 23:19 Rate is 59 beats/min. Rhythm is regular, Normal Sinus Rhythm. QRS [place] is Normal. [place] sp4 interval is normal. QRS interval is normal. QT interval is normal. No Q waves. T waves are Normal. No ST changes noted. Clinical impression: Normal ECG. Interpreted by me. Reviewed by me. Administered Medications: 22:19 Drug: NS 0.9% IV 1000 ml IV at 1000 ml once; to be given as a bolus over 60 minutes jb4 Route: IV; Rate: 1000 ml; Site: left forearm; 01/15 00:00 Follow up: Response: No adverse reaction; IV Status: Completed infusion; IV Intake: br2 1000ml 01/14 22:20 Drug: Keppra IV 1000 mg IV at calculated rate once Route: IV; Rate: calculated rate; jb4 Site: left forearm; 01/15 00:00 Follow up: Response: No adverse reaction; IV Status: Completed infusion; IV Intake: br2 100ml 01/14 22:41 Drug: Ondansetron IVP 4 mg IVP once; over 2 minutes Route: IVP; Site: left forearm; 1 01/15 00:00 Follow up: Response: No adverse reaction br2 01/14 22:43 Drug: Ativan IVP 2 mg IVP once Route: IVP; Site: left forearm; 1 01/15 00:00 Follow up: Response: No adverse reaction br2 00:54 Drug: Keppra IV 1500 mg IV at calculated rate once Route: IV; Rate: calculated rate; br2 Site: left wrist; 01:40 Follow up: Response: No adverse reaction; IV Status: Completed infusion; IV Intake: br2 100ml Disposition Summary: 01/15/25 00:16 Transfer Ordered Notes: Transfer Location: [facility] sp4 Reason: Higher level of care sp4 Condition: Stable sp4 Problem: new sp4 Symptoms: have improved sp4 Accepting Physician: Attending neurologist [facility](01/15/25 01:57) br2 Diagnosis - Other seizures sp4 - Epileptic seizures intractable, recurrent sp4 Forms: - Medication Reconciliation Form sp4 - SBAR form sp4 Critical care time excluding procedures: 00:20 Critical care time: Bedside Care: 36 minutes, Consultation: 12 minutes, Family sp4 Intervention: 12 minutes. 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 EDMS EDMS 21:24 21:24 BASIC METABOLIC PANEL+C.LAB.BRZ ordered. EDMS EDMS 21:24 21:24 CBC+H.LAB.BRZ ordered. EDMS EDMS 21:24 21:24 ETHANOL+C.LAB.BRZ ordered. EDMS EDMS 21:24 21:24 HEPATIC FUNCTION+C.LAB.BRZ ordered. EDMS EDMS 21:24 21:24 PROTIME (+INR)+COAG.LAB.BRZ ordered. EDMS EDMS 21:24 21:24 Test, Urine+UC.LAB.BRZ ordered. EDMS EDMS 21:24 21:24 PTT, ACTIVATED+COAG.LAB.BRZ ordered. EDMS EDMS 21:24 21:24 SALICYLATE+C.LAB.BRZ ordered. EDMS EDMS 21:24 21:24 Urinalysis+U.LAB.BRZ ordered. EDMS EDMS 21:24 21:24 URINE DRUG SCREEN+UC.LAB.BRZ ordered. EDMS EDMS 22:04 21:24 Suicide Screening ([place]) ordered. sp4 jb4 22:36 22:36 CREATINE PHOSPHOKINASE+C.LAB.BRZ ordered. EDMS EDMS 23:11 23:11 Head Brain Wo Cont+CT.RAD.BRZ ordered. EDMS EDMS 01/15 01:57 00:16 Attending neurologist [facility]'s sp4 br2
[2025-01-15 00:38] LABS: Specific Gravity 1.017 (1.005-1.030); Sqamous Epithelial <5 /HPF (None Seen); Urine Bacteria None Seen /HPF (<20); Urine Bilirubin NEGATIVE (Negative); Urine Blood Negative (Negative); Urine Clarity Clear (Clear); Urine Color Colorless (Yellow); Urine Culture Reflex Order NOT NEEDED; Urine Glucose NEGATIVE (Negative); Urine Ketones NEGATIVE (Negative); Urine Microscopic Reflex YN ORDER UMIC; Urine Nitrite NEGATIVE (Negative); Urine Protein NEGATIVE (Negative); Urine RBC <5 /HPF (None Seen); Urine Urobilinogen Normal (Normal); Urine WBC <5 /HPF (<5)
[2025-01-15] MEDS ORDERED: LEVETIRACETAM 500 MG/5 ML VIAL IV ONE (00:44)
[2025-01-15] MEDS ORDERED: NA CHLORIDE 0.9% 100 ML ONE (00:45)
[2025-01-15 01:14] LABS: Barbiturates NEGATIVE (NEGATIVE); Benzodiazepines NEGATIVE (NEGATIVE); Cocaine NEGATIVE (NEGATIVE); METHAMPHETAM NEGATIVE (NEGATIVE); Methadone NEGATIVE (NEGATIVE); Opiates NEGATIVE (NEGATIVE); Phencyclidine NEGATIVE (NEGATIVE); THC Cannibis NEGATIVE (NEGATIVE)
[2025-01-15 02:00] VITALS: TEMP 97.6
[2025-01-15 02:03] VITALS: BP 101/64; O2SAT 98
--- NOTE | 2025-01-15 03:06 | RAD REPORT ---
EXAM: Head Brain Wo Cont CLINICAL INDICATION: 19-year-old female with seizure. COMPARISON: None. TECHNIQUE: CT brain without contrast. This exam was performed according to our departmental dose o ptimization program which includes use of automated exposure control, adjustment of the mA and/or kV according to patient size and/or use of iterative reconstruction technique. FINDINGS: The ventricles, sulci, and cisterns are within normal limits. The faulkner-white matter differentiati on is preserved. There is no mass effect, midline shift, intra- or extra-axial fluid collection/acute hemorrhage. The osseous structures are unremarkable. The paranasal sinuses and m astoid air cells are clear. IMPRESSION: No acute intracranial abnormalities. Electronically signed by: Kristen Solorio MD 01/15/2025 12:52 AM CDT RP Due to temporary technical issues with the PACS/[employer] reporting system, reports are being jeanentte d by the in-house radiologist without review as a courtesy to ensure prompt reporting the interpreting radiologist is fully responsible for the content of the report. Transcribed Date/Time: 01/15/2025 3:06 AM
--- NOTE | 2025-01-18 12:11 | EKG ---
Test Date: 2025-01-14 Test Time: 23:19:50 Loan Clerk: AF MEASUREMENT RESULTS: Intervals: Rate: 59 TX: 138 QRSD: 114 QT: 416 QTc: 411 [place]: P: 60 TX: 138 QRS: 69 T: 66 INTERPRETIVE STATEMENTS: Sinus bradycardia with marked sinus arrhythmia Incomplete right bundle branch block Borderline ECG Compared to ECG 01/02/2025 00:35:36 Incomplete right bundle-branch block now present Sinus rhythm no longer present Electronically Signed On 01-18-25 12:03:17 CDT by Timothy Viramontes
== END 2025-01-15 01:57 | disposition short-term general hospital (02) ==
LOC: ER 21:00
DX: G40.919 Epilepsy, unspecified, intractable, without status epilepticus (principal)
CPT/HCPCS: 85025; 81001; 80048; 36415; 82550; 81025; 85610; 80076; 85730; 80307; 70450; 99285; 80143; 80179; 82077; J1953 ×2; J2405; J7030; 93005